=== PATIENT | male | born 1985 | race American Indian/Alaskan Native ===

== ENCOUNTER 2016-09-08 16:48 | Emergency (ER) | payer MEDICAID, OTHER ==
[2016-09-08 17:15] VITALS: RESP 18; O2SAT 97
--- NOTE | 2016-09-08 17:22 | C.PDOC ---
History Of Present Illness 30 yr old male presents to the ER with complaints of head and neck injury sustained today around 15:45. Patient reports a block of ice fell from the roof and landed on the left side of head which caused his neck to twist rightwards. 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 Currently patient is complaining of pain to the back and right side of the neck, which is worse with turning leftward, and pain to the left side of the scalp with a contusion to the site. Patient denies LOC, chest pain, nausea, vomiting, vision changes, back pain, weakness or numbness. CO HEAD, NECK INJURY @ 1545. PS BLOCK OF ICE FELL OFF OF ROOF, LANDED ON TOP OF L HEAD WHICH CAUSED HIS NECK TO TWIST RIGHTWARD. NO LOC, NV. INITIALLY FELT DAZED. 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 CO PAIN BACK/SIDE OF R NECK, WORSE W TURNING LEFTWARD. PAIN L SCALP AT CONTUSION SITE. 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 NONTOXIC HEENT MILD L PARIETAL AREA SCALP TEND NO SWELL, DEFORM; SKIN INTACT NECK NO CSPINE TEND; LIMITED L LAT ROTATION DUE TO PAIN; +SPASM R PARACERV AREA W LOCAL TEND; NO SWELL, DEFORM NEURO INTACT SKIN INTACT Time Seen by Provider: 09/08/16 17:12 Chief Complaint (Nursing): Trauma History Per: Patient History/Exam Limitations: no limitations Injury Occurred (Timing): Hours Ago: (2hrs ago) Onset/Duration Of Symptoms: Sudden Onset (2hrs ago) Patient States: Struck With Object (ice) Past Medical History Reviewed: Historical Data, Nursing Documentation, Vital Signs Vital Signs: Last Vital Signs Temp Pulse 67 09/08/16 18:35 Resp 18 09/08/16 18:35 BP 118/73 09/08/16 18:35 Pulse Ox 97 09/08/16 18:35 Family History: States: No Known Family Hx - Social History Hx Tobacco Use: Yes Hx Alcohol Use: Yes Hx Substance Use: Yes (marijauna) - Immunization History Hx Tetanus Toxoid Vaccination: Yes Hx Influenza Vaccination: Yes Hx Pneumococcal Vaccination: No Review Of Systems Except As Marked, All Systems Reviewed And Found Negative. Eyes: Negative for: Vision Change Cardiovascular: Negative for: Chest Pain Gastrointestinal: Negative for: Nausea, Vomiting Musculoskeletal: Positive for: Neck Pain (back and right side of neck ). Negative for: Back Pain Neurological: Negative for: Weakness, Numbness Physical Exam - Physical Exam Appears: Non-toxic, In Acute Distress (Mild) Skin: Warm, Dry, No Pale, No Rash Head: Tenderness (Left parietal area scalp tenderness. No swelling. No deformity. ) Eye(s): bilateral: Normal Inspection, PERRL, EOMI Ear(s): Bilateral: Normal Oral Mucosa: Moist Neck: No Midline Cervical Tenderness, Paracervical Tenderness (spasm to the right paracervical area with local tenderness. No swelling ), Other (Limited left lateral rotation due to pain. ) Chest: Symmetrical, No Tenderness Cardiovascular: Rhythm Regular, No Murmur Respiratory: Normal Breath Sounds, No Rales, No Rhonchi, No Stridor, No Wheezing Extremity: Normal ROM, No Deformity, No Swelling Neurological/Psych: Oriented x3, Normal Speech, Normal Motor Gait: Steady ED Course And Treatment O2 Sat by Pulse Oximetry: 97 - CT Scan/US CT - Cervical Spine Other Rad Studies (CT/US): Read By Radiologist, Radiology Report Reviewed CT/US Interpretation: PROCEDURE: CT Cervical Spine without contrast. HISTORY: Trauma. COMPARISON: None available. TECHNIQUE: Axial computed tomography images were obtained of the cervical spine without the use of intravenous contrast. Coronal and sagittal reformatted images were created and reviewed. Radiation dose: Total exam DLP = 502 mGy-cm. FINDINGS: VERTEBRAE: No fracture. Normal alignment. No destructive bony lesion. DISCS/SPINAL CANAL/ NEURAL FORAMINA: No significant central canal or neural foraminal stenosis. Discs heights are grossly preserved. PARASPINAL SOFT TISSUES: Unremarkable. OTHER FINDINGS: None. IMPRESSION: Unremarkable CT of the cervical spine. CT - Head Other Rad Studies (CT/US): Read By Radiologist, Radiology Report Reviewed CT/US Interpretation: PROCEDURE: CT HEAD WITHOUT CONTRAST. HISTORY: TRAUMA. COMPARISON: None available. TECHNIQUE: Axial computed tomography images were obtained through the head/brain without intravenous contrast. Radiation dose: Total exam DLP = 910 mGy-cm. FINDINGS: HEMORRHAGE: No intracranial hemorrhage. BRAIN: No mass effect or edema. No atrophy or chronic microvascular ischemic changes. VENTRICLES: Unremarkable. No hydrocephalus. CALVARIUM: Unremarkable. PARANASAL SINUSES: Unremarkable as visualized. No significant inflammatory changes. MASTOID AIR CELLS: Unremarkable as visualized. No inflammatory changes. OTHER FINDINGS: None. IMPRESSION: Normal CT of the Head. Reevaluation Time: 18:28 Reassessment Condition: Improved Medical Decision Making Medical Decision Making: PLAN: * CT - Cervical Spine, Head * Toradol IM Disposition Counseled Patient/Family Regarding: Studies Performed, Diagnosis, Need For Followup, Rx Given - Disposition Referrals: [facility] [Outside] [facility] [Outside] Disposition: HOME/ ROUTINE Disposition Time: 18:28 Condition: IMPROVED Prescriptions: Cyclobenzaprine [Flexeril] 10 mg PO TID #15 tab Naproxen 500 mg PO BID #30 tab Acetaminophen/Codeine [Tylenol/Codeine 300 MG/30 MG] 2 tab PO Q6H #20 tab Instructions: Cervical Strain (DC), Head Injury (ED) Forms: Work Excuse - Clinical Impression Clinical Impression: Neck strain, Minor head injury - Scribe Statement The provider has reviewed the documentation as recorded by the Bailey Ochoa Provider Attestation: All medical record entries made by the Bailey were at my direction and personally dictated by me. I have reviewed the chart and agree that the record accurately reflects my personal performance of the history, physical exam, medical decision making, and the department course for this patient. I have also personally directed, reviewed, and agree with the discharge instructions and disposition.
--- NOTE | 2016-09-08 18:03 | CT ---
PROCEDURE: CT HEAD WITHOUT CONTRAST. HISTORY: TRAUMA COMPARISON: None available. TECHNIQUE: Axial computed tomography images were obtained through the head/brain without intravenous contrast. Radiation dose: Total exam DLP = 910 mGy-cm. FINDINGS: HEMORRHAGE: No intracranial hemorrhage. BRAIN: No mass effect or edema. No atrophy or chronic microvascular ischemic changes. VENTRICLES: Unremarkable. No hydrocephalus. CALVARIUM: Unremarkable. PARANASAL SINUSES: Unremarkable as visualized. No significant inflammatory changes. MASTOID AIR CELLS: Unremarkable as visualized. No inflammatory changes. OTHER FINDINGS: None. IMPRESSION: Normal CT of the Head.
--- NOTE | 2016-09-08 18:06 | CT ---
PROCEDURE: CT Cervical Spine without contrast HISTORY: Trauma COMPARISON: None available. TECHNIQUE: Axial computed tomography images were obtained of the cervical spine without the use of intravenous contrast. Coronal and sagittal reformatted images were created and reviewed. Radiation dose: Total exam DLP = 502 mGy-cm. FINDINGS: VERTEBRAE: No fracture. Normal alignment. No destructive bony lesion. DISCS/SPINAL CANAL/NEURAL FORAMINA: No significant central canal or neural foraminal stenosis. Discs heights are grossly preserved. PARASPINAL SOFT TISSUES: Unremarkable. OTHER FINDINGS: None. IMPRESSION: Unremarkable CT of the cervical spine.
[2016-09-08 18:36] VITALS: BP 118/73; PULSE 67
== END 2016-09-08 18:36 | disposition home or self-care (01) ==
LOC: C.ER 16:48
DX: S16.1XXA Strain of muscle, fascia and tendon at neck level, initial encounter (principal); S09.90XA Unspecified injury of head, initial encounter; W22.8XXA Striking against or struck by other objects, initial encounter
CPT/HCPCS: 70450; 72125; 96372; 99285; J1885

== ENCOUNTER 2016-09-21 09:48 | Emergency (ER) | payer MEDICAID, OTHER ==
[2016-09-21 09:57] VITALS: RESP 18; O2SAT 100
[2016-09-21] MEDS ORDERED: Alum-Mag Hydrox-Simethicone Susp (30 mL) PO STA (10:19)
--- NOTE | 2016-09-21 10:26 | C.PDOC ---
History Of Present Illness 30 y/o male presents to the ED for evaluation of chest pain. He reports that he was seen here September 08, 2016 for neck pain after a block off ice fell off the roof and hit his head. Patient had a CT scan of head and neck of the time and reports he has been taking Motrin at home. He states that he still has some neck pain but now he also has chest pain. Patient denies visual changes, shortness of breath, or other complaints. Time Seen by Provider: 09/21/16 10:01 Chief Complaint (Nursing): Chest Pain History Per: Patient History/Exam Limitations: no limitations Onset/Duration Of Symptoms: Days, Gradual, Persistent Current Symptoms Are (Timing): Still Present Recent travel outside of the [place]: No Past Medical History Reviewed: Historical Data, Nursing Documentation, Vital Signs Vital Signs: Last Vital Signs Temp 98 F 09/21/16 11:20 Pulse 77 09/21/16 11:20 Resp 18 09/21/16 11:20 BP 107/62 09/21/16 11:20 Pulse Ox 100 09/21/16 11:20 - Medical History PMH: No Chronic Diseases Surgical History: No Surg Hx Family History: States: No Known Family Hx - Social History Hx Tobacco Use: Yes Hx Alcohol Use: Yes Hx Substance Use: Yes (marijauna) - Immunization History Hx Tetanus Toxoid Vaccination: Yes Hx Influenza Vaccination: Yes Hx Pneumococcal Vaccination: No Review Of Systems Except As Marked, All Systems Reviewed And Found Negative. Eyes: Negative for: Vision Change Cardiovascular: Positive for: Chest Pain Respiratory: Negative for: Shortness of Breath Musculoskeletal: Positive for: Neck Pain Physical Exam - Physical Exam Appears: Non-toxic, No Acute Distress Skin: Normal Color, Warm, Dry Head: Atraumatic, Normacephalic Eye(s): bilateral: Normal Inspection, PERRL Neck: Normal ROM, No Midline Cervical Tenderness, Supple Chest: Symmetrical, Tenderness (anterior chest wall) Cardiovascular: Rhythm Regular Respiratory: Normal Breath Sounds, No Rales, No Rhonchi, No Wheezing Gastrointestinal/Abdominal: Normal Exam, Soft, No Tenderness Extremity: Normal ROM Neurological/Psych: Oriented x3, Normal Speech, Normal Cognition ED Course And Treatment ECG: Interpreted By Me ECG Rhythm: Sinus Rhythm ECG Interpretation: No Acute Changes Rate From EC (bpm) O2 Sat by Pulse Oximetry: 100 (ra) Pulse Ox Interpretation: Normal - Radiology CXR: Interpreted by Me CXR Interpretation: Yes: No Acute Disease - Other Rad Chest X-Ray X-Ray: Viewed By Me, Read By Radiologist Interpretation: Accession No. : [id number]. Patient Name / ID : LEILA FRAGOSO / [id number]. Exam Date : 09/21/2016 10:19:21 ( Approved ). Study Comment : Sex / Age : M / 30Y. Creator : Jeb Chirinos MD. Dictator : Jeb Chirinos MD. Bolt Labeler : Community Chest Officer : Jeb Chirinos MD. Approver2 : Report Date : 09/21/2016 10:51:24. My Comment : . HISTORY: Shortness of breath. COMPARISON: 06/24/2014. TECHNIQUE: Chest PA and lateral. FINDINGS: LUNGS: No focal infiltrate or effusion. PLEURA: No significant pleural effusion identified. No pneumothorax apparent. CARDIOVASCULAR: Normal. OSSEOUS STRUCTURES: No significant abnormalities. VISUALIZED UPPER ABDOMEN: Normal. OTHER FINDINGS: None. IMPRESSION: No active disease. Progress Note: On re-evaluation lungs clear in no distress Reassessment Condition: Improved Medical Decision Making Medical Decision Making: Plan: * CXR * EKG * Maalox PO Disposition Counseled Patient/Family Regarding: Studies Performed, Diagnosis, Need For Followup, Rx Given - Disposition Referrals: [facility] [Outside] [facility] [Outside] Disposition: HOME/ ROUTINE Disposition Time: 11:30 Condition: STABLE Additional Instructions: Follow up with clinic return to ED if any increase symptoms Prescriptions: Famotidine [Pepcid AC] 10 mg PO BID #10 tablet Instructions: Chest Wall Pain (ED), Gastritis (ED) - POA Present On Arrival: None - Clinical Impression Clinical Impression: Chest wall pain, Gastritis - PA / MANUFACTURING MANAGEMENT ASSOCIATE / Resident Statement MD/DO has reviewed & agrees with the documentation as recorded. - Scribe Statement The provider has reviewed the documentation as recorded by the Scribe (Shelli Shi) All medical record entries made by the Scribe were at my direction and personally dictated by me. I have reviewed the chart and agree that the record accurately reflects my personal performance of the history, physical exam, medical decision making, and the department course for this patient. I have also personally directed, reviewed, and agree with the discharge instructions and disposition.
[2016-09-21] MEDS ORDERED: Alum-Mag Hydrox-Simethicone Susp (30 mL) ONE (10:37)
--- NOTE | 2016-09-21 10:52 | RAD ---
HISTORY: Shortness of breath COMPARISON: 06/24/2014 TECHNIQUE: Chest PA and lateral FINDINGS: LUNGS: No focal infiltrate or effusion. PLEURA: No significant pleural effusion identified. No pneumothorax apparent. CARDIOVASCULAR: Normal. OSSEOUS STRUCTURES: No significant abnormalities. VISUALIZED UPPER ABDOMEN: Normal. OTHER FINDINGS: None. IMPRESSION: No active disease.
[2016-09-21 11:41] VITALS: BP 107/62; PULSE 77; TEMP 98
--- NOTE | 2016-09-22 21:36 | CARD ---
APPROVED REPORT EKG Measurement Heart [id number] [id number] <Conclusion> Normal sinus rhythm Minimal voltage criteria for LVH, may be normal variant Borderline ECG
== END 2016-09-21 11:41 | disposition home or self-care (01) ==
LOC: C.ER 09:48
DX: K29.70 Gastritis, unspecified, without bleeding (principal); R07.89 Other chest pain

== ENCOUNTER 2017-03-07 13:56 | Emergency (ER) | payer MEDICAID ==
[2017-03-07 14:02] VITALS: TEMP 98.1; O2SAT 97
[2017-03-07] MEDS ORDERED: Albuterol-Ipratrop 3 mg / 0.5 (3 ml) UD IH STA (15:44)
[2017-03-07] MEDS ORDERED: Albuterol-Ipratrop 3 mg / 0.5 (3 ml) UD ONE (15:55)
--- NOTE | 2017-03-07 16:47 | C.PDOC ---
Time Seen by Provider: 03/07/17 15:14 Chief Complaint (Nursing): Cough, Cold, Congestion History Per: Patient Onset/Duration Of Symptoms: Days (about 1-2 weeks) Current Symptoms Are (Timing): Still Present Associated Symptoms: Cough, Sputum Severity: Moderate Additional History Per: Prior Records Past Medical History Reviewed: Historical Data, Nursing Documentation, Vital Signs Vital Signs: Last Vital Signs Temp 98.1 F 03/07/17 14:01 Pulse 91 H 03/07/17 14:01 Resp 18 03/07/17 14:01 BP 131/84 03/07/17 14:01 Pulse Ox 97 03/07/17 14:01 - Medical History PMH: No Chronic Diseases Family History: States: Unknown Family Hx - Social History Hx Tobacco Use: Yes (Quit 2 weeks ago) Hx Alcohol Use: Yes Hx Substance Use: Yes (marijauna) - Immunization History Hx Tetanus Toxoid Vaccination: Yes Hx Influenza Vaccination: Yes Hx Pneumococcal Vaccination: No Review Of Systems Except As Marked, All Systems Reviewed And Found Negative. Constitutional: Negative for: Fever Cardiovascular: Negative for: Chest Pain Respiratory: Positive for: Cough, Sputum. Negative for: Shortness of Breath, Hemoptysis Gastrointestinal: Negative for: Vomiting, Abdominal Pain Musculoskeletal: Negative for: Neck Pain, Back Pain, Leg Pain Skin: Negative for: Rash Neurological: Negative for: Weakness, Numbness Physical Exam - Physical Exam Appears: Non-toxic, No Acute Distress Skin: Normal Color, Warm, Dry, No Rash Head: Atraumatic, Normacephalic Eye(s): bilateral: Normal Inspection, PERRL, EOMI Neck: Normal ROM, Supple Cardiovascular: Rhythm Regular Respiratory: No Accessory Muscle Use, Wheezing Gastrointestinal/Abdominal: Soft, No Tenderness Back: No CVA Tenderness Extremity: Normal ROM, No Pedal Edema, No Calf Tenderness Neurological/Psych: Oriented x3, Normal Speech, Normal Motor, Normal Sensation ED Course And Treatment O2 Sat by Pulse Oximetry: 97 Pulse Ox Interpretation: Normal - Radiology CXR: Interpreted by Me, Viewed By Me CXR Interpretation: Yes: No Acute Disease, Heart Size (wnl) Progress Note: Pt is currently taking a Z-pack and Medrol dose pack prescribed by his PMD. Progress - Interventions Interventions:: Observation - Medications Administered Inhaled nebulized: Anticholinergic, Beta-2 agonist - Data Reviewed Data Reviewed: Diagnostic imaging, Old records - Patient Status Patient status: Mostly improved - Continuity of Care Discussed patient case with:: Patient, ED Nurse - Patient Plan Patient Plan: Discharge, F/U with PCP, Continue present meds Disposition Counseled Patient/Family Regarding: Studies Performed, Diagnosis, Need For Followup, Rx Given, Smoking Cessation - Disposition Referrals: Susan Matamoros MD [Staff Provider] - Disposition: HOME/ ROUTINE Disposition Time: 16:50 Condition: IMPROVED Additional Instructions: Continue taking your medications as prescribed. Follow up with your doctor in 2- 3 days. Return to the ER if you develop fever, shortness of breath, worsening of symptoms or if you have any other concerns. Prescriptions: Albuterol HFA [Ventolin HFA 90 mcg/actuation (8 g)] 2 puff IH Q4 PRN #1 unit PRN Reason: Wheezing Instructions: Acute Bronchitis (ED) Forms: [employer] (Beninese) - Clinical Impression Clinical Impression: Acute wheezy bronchitis
--- NOTE | 2017-03-07 16:48 | RAD ---
HISTORY: Productive cough, wheezing COMPARISON: 09/21/2016 TECHNIQUE: Chest PA and lateral FINDINGS: LUNGS: No active pulmonary disease. PLEURA: No significant pleural effusion identified. No pneumothorax apparent. CARDIOVASCULAR: Normal. OSSEOUS STRUCTURES: No significant abnormalities. VISUALIZED UPPER ABDOMEN: Normal. OTHER FINDINGS: None. IMPRESSION: No active disease. No interval pathology appreciated
[2017-03-07 16:59] VITALS: BP 128/88; PULSE 78; RESP 19
== END 2017-03-07 16:59 | disposition home or self-care (01) ==
LOC: C.ER 13:56
DX: J20.9 Acute bronchitis, unspecified (principal); Z87.891 Personal history of nicotine dependence

== ENCOUNTER 2017-07-14 01:09 | Emergency (ER) | payer MEDICAID ==
[2017-07-14] MEDS ORDERED: Fluorescein 1 mg Ophthalmic Strip ONE (02:18)
[2017-07-14] MEDS ORDERED: Tetracaine 0.5% Ophth 2 ML BOTTLE OD ONE (02:19)
[2017-07-14] MEDS ORDERED: Fluorescein 1 mg Ophthalmic Strip OD ONE (02:19)
[2017-07-14] MEDS ORDERED: Tetracaine 0.5% Ophth (OR ONLY) ONE (02:19)
--- NOTE | 2017-07-14 02:38 | C.PDOC ---
History Of Present Illness 31 year old male presents to the ED for evaluation of right eye pain that started earlier tonight. Patient reports he was cooking an egg in boiling water after which he tapped the egg and exploded splashing boiling water in his face and right eye. Patient denies visual changes, blurry vision, head injury, dizziness, nausea, vomit. Time Seen by Provider: 07/14/17 01:48 Chief Complaint (Nursing): Eye Problem History Per: Patient History/Exam Limitations: no limitations Onset/Duration Of Symptoms: Hrs Current Symptoms Are (Timing): Still Present Injury To Eye?: Yes Severity: Mild Quality: Burning Wears Contact Lens?: No Associated Symptoms: Pain, FB Sensation Recent travel outside of the [place]: No Additional History Per: Patient Past Medical History Reviewed: Historical Data, Nursing Documentation, Vital Signs Vital Signs: Last Vital Signs Temp 98.2 F 07/14/17 03:03 Pulse 89 07/14/17 03:03 Resp 18 07/14/17 03:03 BP 146/82 07/14/17 03:03 Pulse Ox 100 07/14/17 03:03 - Medical History PMH: No Chronic Diseases Surgical History: No Surg Hx Family History: States: Unknown Family Hx - Social History Hx Tobacco Use: Yes (Quit 2 weeks ago) Hx Alcohol Use: Yes Hx Substance Use: Yes (marijauna) - Immunization History Hx Tetanus Toxoid Vaccination: Yes Hx Influenza Vaccination: Yes Hx Pneumococcal Vaccination: No Review Of Systems Constitutional: Negative for: Fever, Chills Eyes: Positive for: Pain, Redness Cardiovascular: Negative for: Chest Pain, Palpitations Respiratory: Negative for: Cough, Shortness of Breath Gastrointestinal: Negative for: Nausea, Vomiting, Abdominal Pain Musculoskeletal: Negative for: Neck Pain Skin: Negative for: Rash Neurological: Negative for: Weakness, Numbness Physical Exam - Physical Exam Appears: Non-toxic, No Acute Distress Skin: Normal Color, Warm, Dry Head: Atraumatic, Normacephalic, Other (2nd degree burn over left eyebrow, 1st degree burn temporal aspect right eyebrow) Eye(s): bilateral: PERRL, EOMI, right: Other (+ conjuctival injection, + chemosis, no FB seen ), left: Normal Inspection Nose: No Discharge, No Deformity Oral Mucosa: Moist Tongue: No Swelling, No Lesions Lips: No Swelling, No Lesions Neck: Normal ROM, Supple Neurological/Psych: Oriented x3, Normal Speech, Normal Cognition Gait: Steady ED Course And Treatment O2 Sat by Pulse Oximetry: 96 (On RA) Pulse Ox Interpretation: Normal Medical Decision Making Medical Decision Making: Plan: * Fluorescein 1 mg OD * Tetracin 1 drop The fluorosceine head (+) uptake on the eye. Disposition - Disposition Referrals: [facility] [Outside] Disposition: HOME/ ROUTINE Disposition Time: 03:00 Condition: GOOD Additional Instructions: Follow up with the Eye doctor within 1-2 days without fail. Return if worsened. Instructions: Corneal Abrasion (ED) Forms: [employer] (Algerian) - POA Present On Arrival: None - Clinical Impression Clinical Impression: Corneal abrasion - PA / CUSTODIAN ATHLETIC EQUIPMENT / Resident Statement MD/DO has reviewed & agrees with the documentation as recorded. - Scribe Statement The provider has reviewed the documentation as recorded by the Scribe Brennan Malagon All medical record entries made by the Scribe were at my direction and personally dictated by me. I have reviewed the chart and agree that the record accurately reflects my personal performance of the history, physical exam, medical decision making, and the department course for this patient. I have also personally directed, reviewed, and agree with the discharge instructions and disposition.
[2017-07-14] MEDS ORDERED: Bacitracin 500 Units/gm Oint Foilpak UD TOP ONE (02:49)
[2017-07-14] MEDS ORDERED: Erythromycin 0.5% Ophth Oint 1 APPLIC/3.5 G OS STA (02:49)
[2017-07-14] MEDS ORDERED: Erythromycin 0.5% Ophth Oint 1 APPLIC/3.5 G ONE (03:01)
[2017-07-14 03:03] VITALS: BP 146/82; PULSE 89; RESP 18; TEMP 98.2
[2017-07-14 05:48] VITALS: O2SAT 96
== END 2017-07-14 03:12 | disposition home or self-care (01) ==
LOC: C.ER 01:09
DX: S05.01XA Injury of conjunctiva and corneal abrasion without foreign body, right eye, initial encounter (principal); T26.02XA Burn of left eyelid and periocular area, initial encounter; T20.10XA Burn of first degree of head, face, and neck, unspecified site, initial encounter; X12.XXXA Contact with other hot fluids, initial encounter